=== PATIENT | female | born 1940 | race African-American/Black ===

== ENCOUNTER 2020-11-25 12:48 | Day surgery (SDCO) | payer MEDICARE ==
[2020-11-25 14:02] LABS: BASOPHIL 0.4 % (0-2); EOSINOPHIL 1.3 % (0-7); HCT 23.3 % (37.0-47.0); LYMPHOCYTE 19.4 % (15-48); MCH 21.7 pg (25.0-31.0); MCHC 27.9 g/dL (32.0-36.0); MCV 77.7 fL (78.0-100.0); MONOCYTE 10.2 % (0-12); MPV 8.9 fL (6.0-9.5); NEUTROPHIL 68.5 % (41-80); NRBC 0; PLT 290 K/uL (150-400); WBC 4.8 K/uL (4.0-10.5)
[2020-11-25 14:09] LABS: INR 1.13 (0.9-1.2); PROTHROMBIN TIME 13.8 SECONDS (11.4-13.6)
[2020-11-25 14:10] LABS: PTT 31.9 SECONDS (22.2-34.7)
[2020-11-25 14:16] LABS: HGB 6.5 g/dl (12.5-16.0)
[2020-11-25 14:37] LABS: BILIRUBIN NEGATIVE (NEGATIVE); BLOOD NEGATIVE Ery/uL (NEGATIVE); CLARITY CLEAR (CLEAR); COLOR YELLOW (YELLOW); GLUCOSE (U) NORMAL (NORMAL); LEUKOCYTES NEGATIVE Leu/uL (NEGATIVE); NITRITE NEGATIVE (NEGATIVE); PROTEIN NEGATIVE (NEGATIVE); UROBILINOGEN 0.2 mg/dL (0.2-1.0); pH 6.5 (5.0-9.0)
[2020-11-25 14:38] LABS: ALBUMIN 3.5 g/dL (3.4-5.0); BILIRUBIN - TOTAL 0.5 mg/dL (0.2-1.0); CREATININE 1.04 mg/dL (0.51-0.95); GLOBULIN (CALCULATION) 3.2 g/dL; POTASSIUM 3.9 mmol/L (3.5-5.1); TOTAL PROTEIN 6.7 g/dL (6.4-8.2)
[2020-11-25 17:02] LABS: RETICULOCYTE COUNT 0.9 % (1.0-2.0)
[2020-11-25 17:10] LABS: IRON % SATURATION 4.9 %SAT (20-50)
[2020-11-26 06:55] LABS: BASOPHIL 0.8 % (0-2); EOSINOPHIL 1.2 % (0-7); LYMPHOCYTE 23.7 % (15-48); MCH 24.3 pg (25.0-31.0); MCHC 30.3 g/dL (32.0-36.0); MONOCYTE 11.8 % (0-12); MPV 8.8 fL (6.0-9.5); NEUTROPHIL 62.2 % (41-80); NRBC 0; PLT 279 K/uL (150-400); WBC 6.6 K/uL (4.0-10.5)
[2020-11-26 06:56] LABS: HGB 9.7 g/dl (12.5-16.0)
[2020-11-26 07:34] LABS: BUN/CREAT RATIO (CALC) 24.4 RATIO; CREATININE 1.19 mg/dL (0.51-0.95)
[2020-11-26] MEDS ORDERED: NORVASC5 MG PO (09:08)
[2020-11-26] MEDS ORDERED: TRANDATE100 MG PO (09:08)
[2020-11-26] MEDS ORDERED: HYDRALAZINE25 MG PO (09:09)
[2020-11-26] MEDS ORDERED: COZAAR50 MG PO (09:09)
[2020-11-26] MEDS ORDERED: NORCO 5/3251 EACH PO (09:10)
[2020-11-26] MEDS ORDERED: POLY-IRON150 MG PO (10:47)
== END 2020-11-26 12:26 | disposition home or self-care (01) ==
LOC: FER 12:48 → FMS 15:00
PROVIDERS: Emergency Medicine; ADMIT Internal Medicine
DX: D50.9 Iron deficiency anemia, unspecified (principal); E78.00 Pure hypercholesterolemia, unspecified; M19.90 Unspecified osteoarthritis, unspecified site; I10 Essential (primary) hypertension; I95.1 Orthostatic hypotension; Z20.822 Contact with and (suspected) exposure to COVID-19; Z79.899 Other long term (current) drug therapy
CPT/HCPCS: 36415; 36430; 71046; 80048; 80053; 81003; 82607; 82728; 82746; 83540; 83550; 83735; 83880; 85025; 85610; 85730; 86850; 86900; 86901; 86922; 94010; G0378; J2916; J7050; P9016; U0002

== ENCOUNTER → 2021-02-10 | Day surgery (SDC) | payer MEDICARE ==
[~2021-02-10] VITALS: Ht 157.5 cm; Wt 59.4 kg
[~2021-02-10] MED LIST: COZAAR50 MG PO; HYDRALAZINE25 MG PO; NORCO 5/3251 EACH PO; NORVASC5 MG PO; POLY-IRON150 MG PO; TRANDATE100 MG PO
[2021-02-10 10:19] LABS: HCT 30.7 % (37.0-47.0); HGB 9.7 g/dl (12.5-16.0); MCH 28.8 pg (25.0-31.0); MCHC 31.6 g/dL (32.0-36.0); MCV 91.1 fL (78.0-100.0); MPV 9.1 fL (6.0-9.5); RBC 3.37 M/uL (4.20-5.40); RDW 18.2 % (11.5-14.0); WBC 6.9 K/uL (4.0-10.5)
[2021-02-10 11:05] LABS: ALBUMIN 3.8 g/dL (3.4-5.0); BILIRUBIN - TOTAL 0.5 mg/dL (0.2-1.0); BUN/CREAT RATIO (CALC) 15.5 RATIO; CREATININE 1.03 mg/dL (0.51-0.95); GLOBULIN (CALCULATION) 3.3 g/dL; POTASSIUM 3.7 mmol/L (3.5-5.1); TOTAL PROTEIN 7.1 g/dL (6.4-8.2)
== END | disposition home or self-care (01) ==
LOC: FAS 09:15
PROVIDERS: Surgery
DX: K29.50 Unspecified chronic gastritis without bleeding (principal); K57.30 Diverticulosis of large intestine without perforation or abscess without bleeding; K29.80 Duodenitis without bleeding; D50.0 Iron deficiency anemia secondary to blood loss (chronic); B96.81 Helicobacter pylori [H. pylori] as the cause of diseases classified elsewhere; Z79.899 Other long term (current) drug therapy; Z77.22 Contact with and (suspected) exposure to environmental tobacco smoke (acute) (chronic); Z90.710 Acquired absence of both cervix and uterus; Z88.8 Allergy status to other drugs, medicaments and biological substances
CPT/HCPCS: 36415; 80053; 88305; J2704; J7120